=== PATIENT | female | born 1995 | race Caucasian/White ===

== ENCOUNTER 2019-02-02 05:55 | Inpatient (IN) | payer OTHER ==
[~2019-02-02] VITALS: Ht 162.6 cm; Wt 77.0 kg
[2019-02-02] MEDS ORDERED: LACTATED RINGER'S 1,000 ML IV PRN (06:23)
[2019-02-02] MEDS ORDERED: OXYTOCIN 30 UNITS/LR 500 ML IV PRN (06:30)
[2019-02-02] MEDS ORDERED: CARBOPROST 250 MCG INJ IM PRN (06:30)
[2019-02-02] MEDS ORDERED: BUTORPHANOL 2 MG INJ IV PRN (06:30)
[2019-02-02] MEDS ORDERED: OXYTOCIN 30 UNITS/LR 500 ML IV SCH ×2 (06:30)
[2019-02-02] MEDS ORDERED: MISOPROSTOL 200 MCG TAB PR PRN (06:30)
[2019-02-02] MEDS ORDERED: METHYLERGONOVINE 0.2 MG INJ IM PRN (06:30)
[2019-02-02] MEDS ORDERED: AMPICILLIN 2 GM/NS (PMX) 100 ML IV ONE (06:30)
[2019-02-02] MEDS ORDERED: LIDOCAINE 1% (MPF) 30 ML INJ INJ PRN (06:30)
[2019-02-02] MEDS ORDERED: IBUPROFEN 600 MG TAB PO PRN (06:30)
[2019-02-02] MEDS ORDERED: PREN-93 PO (06:32)
[2019-02-02 06:33] VITALS: Ht 162.6 cm; Wt 77.0 kg
[2019-02-02 06:35] VITALS: BP 124/80; PULSE 64; RESP 18
--- NOTE | 2019-02-02 08:09 | TRIAGE ---
OB Triage Datetime Report Generated by CPN: 02/02/2019 08:09 Datetime: 02/02/2019 07:35 Assessment Type: Admission Assessment Vaginal Bleeding: None Maternal Assessment Level of Consciousness: Keenly Alert, Responsive DTR's/Clonus: DTRs 2+; No Clonus Headache: Denies Blurred Vision: No Respiratory Effort: Unlabored; Regular Rhythm; Equal Expansion Breath Sounds, Left: Clear and Equal Breath Sounds, Right: Clear and Equal Nausea/Vomiting: Denies RUQ Epigastric Pain: Denies Lower Extremities Edema: None Degree: None Upper Extremities Edema: None Degree: None Facial Edema: None Fall Risk Assessment History of Falling: (0) No Secondary Diagnosis: (0) No Ambulatory Aid: (0) Bedrest/Nurse Assist IV Therapy: (0) No Gait: (0) Normal/Bedrest/Immobile Mental Status: (0) Oriented to Own Ability Pain Assessment Pain Scale: 3 Pain Presence: Intermittent Pain Type: Contraction Pain Location: Abdomen Pain Goal: 7 Pain Assessment Comments: PT WILL ASK FOR EPIDURAL WHEN AT A "7" Datetime: 02/02/2019 07:08 Time of Arrival: 02/02/2019 07:33 Arrived By: Ambulatory Arrived From: Home Datetime: 02/02/2019 07:04 Membrane Status: Ruptured Datetime: 02/02/2019 07:00 Stage of : Labor Labor Evaluation Frequency: 4-5 Monitor Mode: External Duration (sec)2399: 80-120 Quality: Mild Pattern: Normal: <= 5 Contractions in 10 Minutes Resting Tone [place]: Relaxed Heart Rate FHR Baseline Rate: 130 Monitor Mode: External US Variability: Moderate 6-25 bpm Accelerations: 15X15 Decelerations: None Category: Category I Datetime: 02/02/2019 06:17 Vaginal Exam Dilatation (cms): 0.5 Effacement (%): 0 Station: -4 Exam By: JIGNESH Burgos Membrane Status: Ruptured Membranes Ruptured Date/Time: 02/02/2019 05:25 Nitrazine: Positive Datetime: 02/02/2019 06:10 Stage of : OB Triage Temperature Route: Oral Pain Assessment Pain Scale: 4 Pain Presence: Intermittent Pain Type: Cramping Pain Location: Abdomen Pain Relief Measures: Comfort Measures Pain Assessment Comments: Pt reports only mild cramping Datetime: 02/02/2019 06:08 Monitor Mode: External Contraction Comments: [place] applied Monitor Mode: External US Comments: EFM applied Datetime: 02/02/2019 06:00 Time of Arrival: 02/02/2019 05:55 Arrived By: Wheelchair Arrived From: Home Chief Complaint: SROM @0525 Movement: Present Contractions: Regular Rupture of Membranes: Ruptured Vaginal Bleeding: None Vaginal Discharge: Present Abdominal Trauma: Not Applicable Patient Complaints: Other Time Provider Notified: 02/02/2019 06:10 Provider Notified: Initial Plan: Monitor, Nitrazine
[2019-02-02] MEDS: LACTATED RINGER'S 1,000 ML IV SCH ×3 (08:23→20:08)
[2019-02-02] MEDS: MISOPROSTOL 50 MCG CAPSULE PO SCH ×4 (08:34→22:43)
[2019-02-02] MEDS: AMPICILLIN 1 GM/NS (PMX) 50 ML IV SCH ×3 (12:28→20:36)
--- NOTE | 2019-02-02 13:50 | PREAC ---
Date/Time of Note Date/Time of Note DATE: 02/02/19 TIME: 13:49 Anesthesia Eval and Record Evaluation Time Pre-Procedure Interview DATE: 02/02/19 TIME: 13:49 Age 23 Sex female NPO: 8 hrs Preoperative diagnosis labor pain Planned procedure epidural Past Medical History Past Medical History: None Surgery & Anesthesia Issues No known issue Meds Anticoagulation: No Beta Joel within 24 hr: No Reason Beta Joel not given: Pt. not on B-Joel Reported Medications Vit No.124/Iron/FA ( Vitamin Tablet) 1 Each Tablet, 1 EACH PO DAILY, TAB 02/02/19 Current Medications Lactated Ringer's 1,000 ml @ 125 mls/hr Q8H IV Last administered on 02/02/19at 08:23; Admin Dose 125 MLS/HR; Start 02/02/19 at 06:23 Ampicillin 50 ml @ 100 mls/hr Q4H IV Last administered on 02/02/19at 12:28; Admin Dose 100 MLS/HR; Start 02/02/19 at 10:30 Butorphanol Tartrate (Stadol) 2 mg Q2H PRN IV .PAIN SCALE 6-10; Start 02/02/19 at 06:30 Lidocaine (Xylocaine 1% (Mpf)) 30 ml ONCE PRN INJ .EPISIOTOMY; Start 02/02/19 at 06:30 Oxytocin/Lactated Ringer's 500 ml @ 500 mls/hr ONCE POST IV ; Start 02/02/19 at 06:30 Oxytocin/Lactated Ringer's 500 ml @ 125 mls/hr POST IV ; Start 02/02/19 at 06:30 Ibuprofen (Motrin) 600 mg ONCE PRN PO .PAIN 1-5; Start 02/02/19 at 06:30 Lactated Ringer's 1,000 ml @ 2,000 mls/hr Q30M PRN IV .ANESTHESIA; Start 02/02/19 at 06:23 Oxytocin/Lactated Ringer's 500 ml @ 0 mls/hr ONCE PRN IV .VAGINAL BLEEDING; Start 02/02/19 at 06:30 Methylergonovine Maleate (Methergine) 0.2 mg ONCE PRN IM .VAGINAL BLEEDING; Start 02/02/19 at 06:30 Carboprost Tromethamine (Hemabate) 250 mcg ONCE PRN IM .VAGINAL BLEEDING; Start 02/02/19 at 06:30 Misoprostol (Cytotec) 1,000 mcg ONCE PRN [place] .VAGINAL BLEEDING; Start 02/02/19 at 06:30 Misoprostol (Cytotec 50 Mcg Capsule) 50 mcg Q4 PO Last administered on 02/02/19 at 12:29; Admin Dose 50 MCG; Start 02/02/19 at 09:00 Meds reviewed: Yes Allergies Coded Allergies: No Known Allergy (Unverified , 02/02/19) Allergies Reviewed: Yes Labs/Studies Labs Reviewed: Reviewed by anesthesiologist Result Diagram: 02/02/19 0810 Laboratory Tests 02/02/19 08:10 Blood Bank Test 02/02/19 08:10 Antibody Screen NEGATIVE Blood Type O POSITIVE Rh Immune Globulin Candidate NO test: Positive Studies: ECG (n/a), CXR (n/a) Pre-procedure Exam Last vitals Vital Signs Date Temp Pulse Resp B/P (MAP) Pulse Ox O2 O2 Flow FiO2 Time Delivery Rate 02/02/19 97.8 64 18 124/80 Room Air 06:35 (95) Airway: Adequate mouth opening Mallampati: Mallampati I Teeth: Normal Lung: Normal Heart: Normal ASA Physical Status ASA physical status: 2 Emergency: None Planned Anesthetic Neuraxial: Epidural Pre-operative Attestations Prior to commencing anesthesia and surgery, the patient was re-evaluated, there was verification of: *The patient's identity *The results of appropriate recent lab work and preoperative vital signs *The above evaluation not changing prior to induction *Anesthetic plan, risk benefits, alternative and complications discussed with patient/family; questions answered; patient/family understands, accepts and wishes to proceed. JAVIER KOCH MD Feb 02, 2019 13:50
[2019-02-02] MEDS ORDERED: FENTAnyl 2MCG/ML-ROPIV 0.2% 100 ML ONE (13:53)
[2019-02-02] MEDS ORDERED: DIPHENHYDRAMINE 50 MG INJ IV PRN (14:00)
[2019-02-02] MEDS ORDERED: NALOXONE (0.4 MG/ML) INJ IV PRN (14:00)
[2019-02-02] MEDS ORDERED: ONDANSETRON 4 MG INJ IV PRN (14:00)
[2019-02-02] MEDS ORDERED: FENTAnyl 2MCG/ML-ROPIV 0.2% 100 ML BAG EPI SCH (14:00)
[2019-02-02] MEDS ORDERED: DEXTROSE 5%-LR 1,000 ML IV PRN (17:30)
--- NOTE | 2019-02-02 17:50 | PREOPHP ---
DATE OF ADMISSION: 02/02/2019 HISTORY OF PRESENT ILLNESS: Ms. Baltazar Valle is a 23-year-old 1, para 0, EDC 019, intrauterine at term, presented to triage, was diagnosed with premature rupture of mem brane since 0525 this morning. She reports of occasional contractions. No vaginal bleeding or disch arge. [facility] care took place at [facility]. MEDICAL HISTORY: None. MEDICATIONS: vitamins. PAST SURGICAL HISTORY: None. OBSTETRIC HISTORY: Primigravida. GYNECOLOGIC HISTORY: 12, regular 3 to 4 days. Denies any sexually transmitted infection. Sexually active, 1 partner. SOCIAL HISTORY: Denies any smoking, drugs or alcohol. FAMILY HISTORY: None. REVIEW OF SYSTEMS: All within normal except history of present illness. PHYSICAL EXAMINATION: HEENT: Within normal. LUNGS: CTA bilateral. CARDIOVASCULAR: S1, S2, regular rhythm. ABDOMEN: Gravid, nontender. Negative CVA bilateral. EXTREMITIES: Negative edema. No calf tenderness. PELVIC: Vaginal exam 180 -2 with spontaneous rupture of membrane. heart tracing category 1, T oco occasional contractions. ASSESSMENT: Intrauterine at term with premature rupture of membranes, currently on Cytotec for cervical ripening. PLAN: Continue present management, consider Pitocin as needed. GBS prophylaxis. Dictated By: LAURA GUILLAUME/DANY Conf#: [id number] DID#: [id number]
[2019-02-03] MEDS: AMPICILLIN 1 GM/NS (PMX) 50 ML IV SCH ×3 (00:13→06:30)
[2019-02-03] MEDS: MISOPROSTOL 50 MCG CAPSULE PO SCH ×2 (01:00→05:00)
[2019-02-03] MEDS: LACTATED RINGER'S 1,000 ML IV SCH (04:04)
--- NOTE | 2019-02-03 05:58 | LDN ---
Date/Time of Note Date/Time of Note DATE: 02/03/19 TIME: 05:57 Delivery Summary Weeks of Gestation 39 Placenta Delivered: Spontaneously Meconium: none Episiotomy: Yes Laceration repair: rmle repair with 2-0 and 3-0 chromic Anesthesia type: Epidural Estimated blood loss: 200 Sponge & Needle done & correct: Yes All needle counts correct: Yes Any foreign bodies felt in the: No Delivery Information Sex Infant Sex: female Apgars 1 Minute: 9 5 Minute: 9 Suctioning Nose & mouth suctioned at kt: No Delee suction performed: No Umbilical Cord Umbilical cord with: 3 Vessels Cord presentations: no nuchal cord Cord Blood was obtained: Yes LAURA STUBBS MD Feb 03, 2019 05:58
[2019-02-03] MEDS ORDERED: LACTATED RINGER'S 1,000 ML IV* SCH (06:49)
[2019-02-03] MEDS ORDERED: OXYTOCIN 30 UNITS/LR 500 ML IV SCH (06:49)
[2019-02-03] MEDS ORDERED: LANOLIN HPA 1 PKT TOP PRN (07:00)
[2019-02-03] MEDS ORDERED: MISOPROSTOL 200 MCG TAB PR PRN (07:00)
[2019-02-03] MEDS ORDERED: BENZOCAINE 20% 56 ML SPRAY TOP PRN (07:00)
[2019-02-03] MEDS ORDERED: METHYLERGONOVINE 0.2 MG INJ IM PRN (07:00)
[2019-02-03] MEDS ORDERED: OXYTOCIN 30 UNITS/LR 500 ML IV PRN (07:00)
[2019-02-03] MEDS ORDERED: MAGNESIUM HYDROXIDE 30ML CUP PO PRN (07:00)
[2019-02-03] MEDS ORDERED: NACL 0.9% 3 ML SYG IV SCH (07:00)
[2019-02-03] MEDS ORDERED: CARBOPROST 250 MCG INJ IM PRN (07:00)
[2019-02-03] MEDS ORDERED: ACETAMINOPHEN 325 MG TAB PO PRN (07:00)
[2019-02-03 08:30] VITALS: BP 115/74; PULSE 63; RESP 19
--- NOTE | 2019-02-03 09:32 | PAC ---
Date/Time of Note Date/Time of Note DATE: 02/03/19 TIME: 09:32 Post-Anesthesia Notes Post-Anesthesia Note Last documented vital signs Vital Signs Date Temp Pulse Resp B/P (MAP) Pulse Ox O2 O2 Flow FiO2 Time Delivery Rate 02/02/19 97.8 64 18 124/80 98 Room Air 06:35 (95) Activity: WNL Respiratory function: WNL Cardiovascular function: WNL Mental status: Baseline Pain reasonably controlled: Yes Hydration appropriate: Yes Nausea/Vomiting absent: No JAVIER KOCH MD Feb 03, 2019 09:32
[2019-02-03] MEDS: SENNA/DOCUSATE NA (8.6MG/50MG) TAB PO PRN ×2 (09:47→22:27)
[2019-02-03] MEDS: WITCH HAZEL/GLYCERIN PAD PR PRN (09:47)
[2019-02-03 09:50] VITALS: BP 106/71; PULSE 67; RESP 18
[2019-02-03] MEDS: IBUPROFEN 600 MG TAB PO SCH ×3 (11:09→23:01)
[2019-02-03 12:00] VITALS: BP 121/91; PULSE 53; RESP 18
[2019-02-03 16:00] VITALS: BP 112/70; PULSE 57; RESP 16
[2019-02-03 20:30] VITALS: BP 112/73; PULSE 78; RESP 18
[2019-02-03 23:40] VITALS: BP 110/76; PULSE 72; RESP 18
[2019-02-04 03:30] VITALS: BP 108/70; PULSE 70; RESP 19
[2019-02-04] MEDS: IBUPROFEN 600 MG TAB PO SCH ×3 (06:35→17:56)
[2019-02-04 07:50] VITALS: BP 105/57; PULSE 55; RESP 16
--- NOTE | 2019-02-04 09:45 | PD.PPDC ---
FINISHER FINE DIAMOND DIES Discharge Instruction Condition Fuceg0Up Patient Condition: Oaivb7r Good Diet [id number] Diet: Hgaby3p Resume Regular Diet Activity/Restrictions [id number] Activity: Iwzhc1e Normal Activity May Shower [id number] Restrictions: Lazpo7j No Exercising No Lifting No Driving No Sexual Activity Nothing in the Vagina No [place] No Tampons, douche Follow-up Follow-up with Physician: 3, Week/Weeks Return to clinic for [id number] HAND BLOCKER Instructions: Czcmy5q Fever greater than 101 Chills Worsening abdominal pain Excessive Vaginal Bleeding More than 2 pads per hour Unable to tolerate diet Ldmqi7Sd OB Instructions: Kbzdk5y Breast Tenderness Depression Blurried Vision Headache [id number] Surgical Instructions: Iqple5j Incisional Drainage Incisional Redness LAURA STUBBS MD Feb 04, 2019 09:45
--- NOTE | 2019-02-04 09:47 | DS ---
Date/Time of Note Date/Time of Note DATE: 02/04/19 TIME: 09:46 Obstetrical Discharge Record Final Diagnosis Final Diagnosis: Term delivered Vaginal Delivery Obstetrical Delivery: Spontaneous Condition on Discharge Physical Assessment Last Vitals: stable afebrile Voiding: Yes Bowel Movement: Yes Breast: Soft, non-tender, Filling Fundus: Firm Calf Tenderness: No Patient Condition: LAURA Elaine MD Feb 04, 2019 09:47
[2019-02-04 16:07] VITALS: BP 114/71; PULSE 67; RESP 18
[2019-02-04 20:00] VITALS: BP 115/74; PULSE 59; RESP 18
[2019-02-04] MEDS: WITCH HAZEL/GLYCERIN PAD PR PRN (21:01)
[2019-02-05] MEDS: IBUPROFEN 600 MG TAB PO SCH ×2 (00:06→06:28)
[2019-02-05 04:00] VITALS: BP 111/75; PULSE 51; RESP 18
[2019-02-05 08:00] VITALS: BP 117/66; PULSE 77; RESP 18
[2019-02-05] MEDS ORDERED: DIPHTH/TET/ACEL PERTUSS (ADULT) 0.5 ML VIAL IM* ONE (09:00)
[2019-02-05] MEDS ORDERED: MEASLES,MUMPS,RUBELLA VACCINE INJ SC* ONE (09:00)
--- NOTE | 2019-02-06 11:52 | DELSUM ---
Delivery Summary A-C Datetime Report Generated by CPN: 02/06/2019 11:52 DELIVERY PERSONNEL Helicopter Repairer: Tersigni, Aleah MATERNAL INFORMATION Delivery Anesthesia: Epidural Medications in Delivery: LR with 30 units of pitocin Delivery QBL (ml): 200 Placenta Cultured: No Maternal Complications: None LABOR SUMMARY EDC: 02/05/2019 00:00 No. Babies in Womb: 1 Attempted: No Labor Anesthesia: Epidural LABOR INFORMATION Reason for Induction: Not Applicable Onset of Labor: 02/02/2019 04:00 Complete Dilatation: 02/03/2019 05:01 Cervical Ripening Agents: Cytotec @ Oxytocin: N/A Group B Beta Strep: Positive Antibiotics # of Doses: 6 Antibiotics Time of Last Dose: 02/03/2019 04:04 Steroids Given: None Reason Steroids Not Administered: Not Applicable MEMBRANES Membranes Rupture Method: Spontaneous Rupture of Membranes: 02/02/2019 05:25 Length of Rupture (hr): 24.15 Amniotic Fluid Color: Clear Amniotic Fluid Amount: Large Amniotic Fluid Odor: Normal STAGES OF LABOR Stage 1 hr: 25 Stage 1 min: 1 Stage 2 hr: 0 Stage 2 min: 33 Stage 3 hr: 0 Stage 3 min: 2 Total Time in Labor hr: 25 Total Time in Labor min: 36 VAGINAL DELIVERY Episiotomy: Right Mediolateral Laceration Extension: First Degree Laceration Type: None Laceration Repair: Yes Initial Vag Sponge Count: 10 Final Vag Sponge Count: 10 Initial Vag Sharps Count: 1+2+1 Final Vag Sharps Count: 4 Sponge Count Correct: Yes; Vaginal Sweep Performed Sharps Count Correct: Yes BABY A INFORMATION Infant Delivery Date/Time: 02/03/2019 05:34 Method of Delivery: Vaginal Born in Route : No : N/A Forceps: N/A Vacuum Extraction: N/A Shoulder Dystocia : N/A SHOULDER DYSTOCIA BABY A Delivery Date/Time: 02/03/2019 05:34 PRESENTATION/POSITION BABY A Presentation: Cephalic Cephalic Presentation: Vertex Vertex Position: Left Occipital Anterior Breech Presentation: N/A PLACENTA INFORMATION BABY A Placenta Delivery Time : 02/03/2019 05:36 Placenta Method of Delivery: Spontaneous Placenta Status: Delivered SCORES BABY A Heart Rate 1 min: >100 bpm Resp Effort 1 min: Good Cry Reflex Irritability 1 min: Cough/Sneeze/Pulls Away Muscle Tone 1 min: Active Motion Color 1 min: Body [place], Extremit Blue Resuscitation Effort 1 min: Tactile Stimulation SCORE 1 MIN: 9 Heart Rate 5 min: >100 bpm Resp Effort 5 min: Good Cry Reflex Irritability 5 min: Cough/Sneeze/Pulls Away Muscle Tone 5 min: Active Motion Color 5 min: Body [place], Extremit Blue Resuscitation Effort 5 min: Tactile Stimulation SCORE 5 MIN: 9 INFANT INFORMATION BABY A Gestational Age at Delivery: 39.5 Gestational Status: Full Term- 39- 40.6 Weeks Outcome : Liveborn, with signs of life Condition : Stable Sex: Female IDENTIFICATION/MEDS BABY A ID Band Number: [id number] ID Band Location: Right Leg; Left Arm Sensor Applied: Yes Sensor Number: [id number] Sensor Location : Cord Clamp Vitamin K Given : Not Given Erythromycin Given: Not Given WEIGHT/LENGTH BABY A Infant Birthweight (gm): 2895 Infant Weight (lb): 6 Weight (oz): 6 Infant Length (in): 19.00 Length (cm): 48.26 CORD INFORMATION BABY A No. Cord Vessels: 3 Nuchal Cord : N/A Cord Blood Taken: Yes Infant Suction: Mouth; Nose ASSESSMENT BABY A Complications: Decreased Variability; Multiple Late Decels Physical Findings at Delivery: Molding of the Head; Within Normal Limits Respirations: Appears Normal Costume Seamstress/ALS Called : No Care By: Gricelda EGAN Transferred To: Remains with Mother
== END 2019-02-05 11:35 | disposition home or self-care (01) | DRG 807 ==
LOC: L-D 05:55 → OBT 05:55 → L-D 06:10 → PP1 02-03 08:27
PROVIDERS: ADMIT Obstetrics & Gynecology; ATTEND Obstetrics & Gynecology
PROC: 10E0XZZ Delivery of Products of Conception, External Approach (ICD-10-PCS; principal; 2019-02-03)
PROC: 0W8NXZZ Division of Female Perineum, External Approach (ICD-10-PCS; 2019-02-03)
DX: O80 Encounter for full-term uncomplicated delivery (principal); Z37.0 Single live birth; Z3A.39 39 weeks gestation of pregnancy
CPT/HCPCS: 62322; 76815; 76818; 85025; 85610; 85730; 86592; 86850; 86900; 86901; 87340; G0463; J0290; J2590; J3010; J7120